=== PATIENT | female | born 1950 | race Caucasian/White ===

== ENCOUNTER 2017-01-04 15:59 | Emergency (ER) | payer MEDICARE ==
[~2017-01-04] VITALS: Ht 160 cm; Wt 93.6 kg
[2017-01-04 16:08] VITALS: BP 155/112; PULSE 72; RESP 18; O2SAT 94
--- NOTE | 2017-01-04 16:19 | ED.REPORT ---
HPI-Chest Pain 40 and Over Date of Service Jan 04, 2017 ED Provider: Baltazar Urbina MD A 66 year old female with a history of diabetes mellitus, hypertension and COPD presents to the ED with numbness/tingling in her bilateral upper extremities that began at 1200 this afternoon. Symptoms associated with the episode this afternoon include dizziness, lightheadedness, blurry vision, shortness of breath , diaphoresis, and tightness in the chest. She also reports recent productive cough with white sputum that began a few days ago. Patient denies exacerbation with exertion or relief with rest. The pain is relieved when she moves onto her side. She denies recent cough, congestions, nausea, vomiting, abdominal pain or fever. Patient denies history of CO. Current medications include Lantus and metformin. Nursing Notes Stated Complaint: NUMBNESS IN HANDS, SOB, LIGHTHEADED Chief Complaint: Chest Pain Nursing Notes Reviewed: Yes Allergies: Coded Allergies: amoxicillin (Verified Allergy, Intermediate, rash, 04/29/16) rhubarb (Verified Allergy, Unknown, 01/04/17) Uncoded Allergies: BEE STINGS (Allergy, Intermediate, 01/04/17) Scheduled Insulin Glargine (Lantus U100 Insulin Vial) 100 Unit/Ml Vial 33 UNIT SUBQ HS reports 33 units at night Lisinopril (Lisinopril) 20 Mg Tablet 20 MG PO DAILY Metformin (Glucophage) 1,000 Mg Tablet 1,000 MG PO BID Scheduled PRN Aspirin Chew (Aspirin Chew) 81 Mg Chew 81 MG PO HS PRN PRN HYPERtension General Time Seen by MD: 16:16 Chief Complaint Chest pain Hx Obtained From: Patient Arrived By: Walk-in Sudden in Onset?: No Onset Occurred: 5 - 8 hours ago Symptom Duration: Since onset Location: : Chest left: Chest right Quality: Pressure (tightness) Radiation: : Does not radiate Migration/Movement: Reports: None Severity: Current: Moderate Severity: Maximum: Moderate Associated with: Reports: Numbness/Tingling, Shortness of Breath, Wheezing, Denies: Cough, non-productive, Fever Pertinent Negative: Pt denies other symptoms Pertinent Negative: Exacerbated by nothing, Relieved by nothing Recent Healthcare: No recent doctor visit, No recent hospitalization Risk Factors )( CAD Risk Stratification Diabetes mellitus Hypertension Risk factors reviewed )( TAD Risk Stratification Hypertension Risk factors reviewed )( PE Risk Stratification Risk factors reviewed Past Medical History Past Medical History History of diabetes on Metformin, Glyberide Also takes Potassium Hypertension on meds as needed Recurrent pneumonia Past Surgical History None reported Family History Reports: Coronary artery disease Reports: Cancer Smoking History Current Every Day Smoker Social History Other Social History: Good social support, Local resident Ambulatory Status Independent Review of Systems Constitutional: Denies: Chills, Fever Respiratory: Reports: Prod cough, white, Shortness of breath, Wheezing Cardiovascular: Reports: Chest pain (tightness) GI: Denies: Abdominal pain, Nausea, Vomiting Skin: Reports Diaphoresis Neurologic: Reports: Dizziness, Lightheaded, Numbness Complete sys rev & neg: except as marked. Ears / Nose / Throat: Denies: Nasal congestion Physical Exam Initial Vital Signs Vital Signs (First) Date Time Temp Pulse Resp B/P Pulse Ox O2 Delivery O2 Flow Rate FiO2 01/04/17 16:08 72 18 155/112 94 Room Air 01/04/17 17:29 1 Initial VS: Reviewed Head / Eyes: Atraumatic, Normocephalic, PERRL Neck: Supple, Non-tender, Full range of motion Extremities: Vascular intact, Neuro intact, No swelling, No tenderness Skin: Warm, Dry, No cyanosis Neurologic: Alert, Oriented, Nonfocal Psychiatric: Mood/affect normal, Behavior normal, Normal thought content General/Constitutional: Awake, Alert, No acute distress Respiratory / Chest: Atraumatic, Breath sounds = bilat Wheezing / Retractions: Positive: Wheeze insp/exp diffuse (Mild bilateral diffuse wheezes ) Chest Wall / Ribs: Positive: Chest tender upper L (Reproducible left sided chest pain) Cardiovascular: Heart rate NL, Regular rhythm, Heart sounds NL, No murmurs CARDIO: Hypertensive Abdomen: Atraumatic, Soft, Non-tender Interpretation & Diagnostics Lab Results Interpretation Result Diagram: 01/04/17 1627 01/04/17 1627 Test 01/04/17 16:27 01/04/17 18:27 White Blood Count 7.6th/mm3 (3.8-10.1) Red Blood Count 4.36mil/mm3 (3.90-5.20) Hemoglobin 14.7g/dL (12.0-15.6) Hematocrit 42.2% (35.0-46.0) Mean Corpuscular Volume 96.8fL (81-100) Mean Corpuscular Hemoglobin 33.7pg (27.0-35.0) Mean Corpuscular Hemoglobin Concent 34.8% (32.0-37.0) Red Cell Distribution Width 13.0% (12.3-15.4) Platelet Count 165bil/L (150-400) Neutrophils (%) (Auto) 55.7% (40-74) Lymphocytes (%) (Auto) 32.8% (14-46) Monocytes (%) (Auto) 9.0% (4-12) Eosinophils (%) (Auto) 1.9% (0-5) Basophils (%) (Auto) 0.5% (0-3) D-Dimer < 0.50mg/L FEU (<0.50) Sodium Level 138mEq/L (134-144) Potassium Level 4.4mEq/L (3.5-5.2) Chloride Level 98mEq/L (97-108) Carbon Dioxide Level 23mmol/L (18-29) Blood Urea Nitrogen 16mg/dL (8-27) Creatinine 0.46mg/dL (0.57-1.00) Estimat Glomerular Filtration Rate 195mL/min (>59) Glucose Level 186mg/dL (60-99) Calcium Level 9.2mg/dL (8.5-10.1) Magnesium Level 1.2mg/dL (1.6-2.6) Total Bilirubin 0.4mg/dL (0.0-1.2) Aspartate Amino Transf (AST/SGOT) 37U/L (0-50) Alanine Aminotransferase (ALT/SGPT) 36U/L (0-32) Alkaline Phosphatase 71U/L (25-165) Pro-B-Type Natriuretic Peptide 56.40pg/mL (0-301) Total Protein 7.1g/dL (6.4-8.4) Albumin 3.7g/dL (3.4-5.0) Thyroid Stimulating Hormone (TSH) 0.365uIU/mL (0.450-4.500) Hold Paredes Top Tube Received (Received) Troponin T < 0.010ug/L (0.0-0.011) ECG Interpretation ECG Interpretation: Sinus Rhythm Rate 70 PVC's present No STT changes Time: 16:23 Interpreted by: ED physician Normal ECG Interpretation: No change from prior ECGs (04/29/16) X-Ray Chest Interpretation Chest Xray Interpretation: IMPRESSION: No acute cardiopulmonary findings. Dictated by: Elisa Mendoza M.D. on 01/04/2017 at 17:05 Interpretation / Wet Read by: Interpret - Radiologist CT Head Interpretation IMPRESSION: 1. No acute intracranial findings. 2. Mild findings likely associated with chronic microvascular ischemic changes. Dictated by: Elisa Mendoza M.D. on 01/04/2017 at 17:15 Re-Eval/Medical Decision Med Decision/Clinical Course 66-year-old female history of COPD, hypertension presenting with blurry vision, dizziness, headache, chest pressure earlier today. Her blood pressure was in the 200 systolic. On arrival it was low 200s. She was given labetalol and her blood pressure improved to 130/80 and all of her symptoms resolved. Her troponins are negative 2. Her CT head was normal. Magnesium was low but labs are otherwise within normal limits. She was given IV magnesium replacement. Likely hypertensive emergency now resolved. I discussed with patient the option for admission and she declined and decided to go home. She will return if her symptoms return. She was started on a blood pressure medication lisinopril. She will follow up with her primary doctor for blood pressure recheck tomorrow. Time of Eval: 17:57 Re-Evaluation/Progress Note: She is informed of her results and diagnosis. She has never been on home O2 and denies taking any BP medication. She would like to be discharged at this time. Time of Eval: 17:58 Patient Status: Condition improved Re-Evaluation/Progress Note: All questions about the intended treatment plan are addressed. She understands and agrees with the plan. Counseled Regarding: Diagnosis, Lab results, Need for follow-up, When/why to return to ED Discharge & Departure Primary Impression: Hypertensive emergency without congestive heart failure Additional Impression: Hypomagnesemia Disposition: Home Discharge Condition All VS Reviewed: Yes Condition: Improved Patient Instructions: Hypertension (ED), Hypertensive Crisis (ED), Hypomagnesemia (ED) Additional Instructions: Thank you for trusting us with your care this evening. Your emergency department results including lab work, EKG, chest X-ray and CT are indicative of a hypertensive emergency and I believe that this is the likely cause of your symptoms. Your magnesium was very low this afternoon. I recommend that you schedule a follow up appointment with your primary care physician in the next 2-3 days for a recheck. Please take the Lisinopril as prescribed until you are able to follow up with your primary care physician. Please return to the emergency department if you begin to develop any new or worsening conditions including any dizziness, lightheadedness, chest pain, shortness of breath, high fever, shaking chills, numbness/tingling or weakness. Referrals: BOO SPEARS MD (PCP) Crit Care Except Billable Proc Time Spent: 30-74 minutes Services Performed: Patient management by me, Time spent at bedside, Reviewing test results, Reviewing imaging, Discussing patient care, Documentation in record, Time with fam/surrogate Scribe Attestation Portions of this note were transcribed by Michell Eddy. I, Dr. Urbina personally performed the history, physical exam and medical decision-making; I reviewed and confirmed the accuracy of the information in the transcribed note. Signed by: Janak Zuñiga, 01/04/171955. copies to: BOO SPEARS MD, Ben M MD Jan 04, 2017 16:18 MICHELL EDDY Jan 04, 2017 16:41
[2017-01-04 16:32] LABS: BASOPHILS % (AUTO) 0.5 % (0-3); EOSINOPHILS % (AUTO) 1.9 % (0-5); Mean Corpuscular Hemoglobin 33.7 pg (27.0-35.0); Mean Corpuscular Volume 96.8 fL (81-100); NEUTROPHILS % (AUTO) 55.7 % (40-74); Platelet Count 165 bil/L (150-400)
[2017-01-04] MEDS ORDERED: METF1000 PO (16:38)
[2017-01-04] MEDS ORDERED: INSU100V7 SUBQ (16:38)
[2017-01-04] MEDS ORDERED: ASPI81TA3 PO (16:38)
[2017-01-04 16:39] VITALS: BP 187/82; PULSE 80; RESP 18; O2SAT 96
[2017-01-04] MEDS ORDERED: Labetalol 5 mg/mL 4 mL Inj IVPUSH ONE ×2 (16:45→16:50)
--- NOTE | 2017-01-04 17:07 | DRSVH ---
PROCEDURE: X-RAY CHEST ONE VIEW, PORTABLE ([id number]) INDICATIONS: CHEST PAIN TECHNIQUE: One view of the chest was acquired. COMPARISON: [facility], CR, XR CHEST 2VW, 04/29/2016, 12:57. FINDINGS: Surgical changes and devices: None. Lungs and pleura: No pleural effusions or pneumothorax. Lungs are clear. Mediastinum: Mediastinal contours appear normal. Heart size is normal. Bones and chest wall: No suspicious bony lesions. Overlying soft tissues appear unremarkable. IMPRESSION: No acute cardiopulmonary findings. Dictated by: Elisa Mendoza M.D. on 01/04/2017 at 17:05 Approved by: Elisa Mendoza M.D. on 01/04/2017 at 17:05
[2017-01-04 17:15] LABS: TROPONIN T < 0.010 ug/L (0.0-0.011)
--- NOTE | 2017-01-04 17:19 | DRSVH ---
PROCEDURE: CT BRAIN WITHOUT CONTRAST ([id number]) INDICATIONS: headache, blurry vision TECHNIQUE: Noncontrast 4.5 mm thick angled axial sections acquired from the foramen magnum to the vertex, with c oronal reformats. COMPARISON: None. FINDINGS: Image quality: Excellent. CSF spaces: Basal cisterns are patent. No extra-axial fluid collections. The ventricles are symmet gabriel in size and shape. Brain: No intracranial bleeds or masses. There is cerebral volume loss for age, with resultant vent ricular and sulcal prominence. There are periventricular and deep white matter chronic small vessel ischemic changes. There is intracranial internal carotid artery atherosclerosis. Skull and face: Calvarium and visualized facial bones appear intact, without suspicious lesions. Sinuses: Visualized sinuses and mastoids are clear. IMPRESSION: 1. No acute intracranial findings. 2. Mild findings likely associated with chronic microvascular ischemic changes. Dictated by: Elisa Mendoza M.D. on 01/04/2017 at 17:15 Approved by: Elisa Mendoza M.D. on 01/04/2017 at 17:18
[2017-01-04 17:26] LABS: Magnesium 1.2 mg/dL (1.6-2.6)
[2017-01-04 17:29] VITALS: BP 155/65; PULSE 77; RESP 16; O2SAT 91
[2017-01-04] MEDS ORDERED: Magnesium Sulf 2 Gm/50mL Water 2 GM in IV Premix 1 EACH IV ONE (17:45)
[2017-01-04] MEDS ORDERED: MethylprednisoLONE Sodium Succinate 62.5 mg/mL 2 mL Inj IVPUSH ONE (18:05)
[2017-01-04 18:41] VITALS: BP 156/76; PULSE 75; RESP 16; O2SAT 95
[2017-01-04] MEDS ORDERED: LISI-567 PO (19:27)
[2017-01-04 19:45] VITALS: BP 156/76; PULSE 75; RESP 16; O2SAT 95
== END 2017-01-04 19:40 | disposition home or self-care (01) ==
LOC: SED 15:59
DX: I16.1 Hypertensive emergency (principal); E83.42 Hypomagnesemia; R05 Cough; R07.89 Other chest pain; I10 Essential (primary) hypertension; J44.9 Chronic obstructive pulmonary disease, unspecified; E11.9 Type 2 diabetes mellitus without complications; F17.200 Nicotine dependence, unspecified, uncomplicated; Z79.4 Long term (current) use of insulin; Z79.84 Long term (current) use of oral hypoglycemic drugs; Z79.82 Long term (current) use of aspirin; Z88.1 Allergy status to other antibiotic agents; Z88.8 Allergy status to other drugs, medicaments and biological substances; Z91.030 Bee allergy status
CPT/HCPCS: 36415; 70450; 71010; 80053; 83735; 83880; 84443; 84484; 85025; 85378; 93005; 96361; 96374; 96375; 99291; J2930